=== PATIENT | female | born 2000 | race Caucasian/White ===

== ENCOUNTER 2022-06-07 06:54 | Day surgery (SDC) | payer MEDICAID, SELFPAY ==
[2022-06-07] VITALS (10 sets, daily range): BP systolic 89–117; BP diastolic 47–77; PULSE 51–73; RESP 15–18; TEMP 36.3–36.9; O2SAT 95–100; BMI 28.5
--- NOTE | 2022-06-07 | POC_PTH ---
PATIENT: [address] LOC: [facility] – [place] U#:[id number] AGE/SX: 22/F ROOM: RE06/07/[address]: Dr. iGna Grimm DO : 2000 BED: DIS: 06/07/2022 SPEC #: [id number] RECD: 06/07/22 13:57 STATUS: TROY SKYE #: [id number] SORAIDA: 06/07/22 00:[address]: Gina Grimm DEPT: SURGICAL PATHOLOGY RECD BY: Sina Strauss Tissues: Product of conception, NOS Procedures: Surgery Specimen Level IV HEADER OPERATION: Suction dilation and curettage PRE-OP DIAGNOSIS: Missed TISSUE SUBMITTED: Products of conception MICROSCOPIC DIAGNOSIS Endometrium, curettage: Chorionic villi, decidualized stroma and trophoblastic cells consistent with products of conception. AM:christiano 06/11/2022 MICROSCOPIC DESCRIPTION Slides are reviewed. GROSS DESCRIPTION Received in fixative is one container labeled with the patient's name and designated products of conception. The specimen consists of multiple fragments of hemorrhagic soft tissue that in aggregate measure 10 x 10 x 3 cm. No tissue is identified. Comb Fixer tissue is submitted in two cassettes. / SJ:christiano 06/10/2022 TC:5 CPT: 52179
[2022-06-07] MEDS: Lactated Ringers 1,000 ML 15 ML IV (07:22)
[2022-06-07] MEDS: Lidocaine 1%/Epi 1:200 (30ml) 30 ML AMPUL (07:49)
[2022-06-07] MEDS: miSOPROStol 200 MCG Tablet (08:08)
--- NOTE | 2022-06-07 08:15 | DCINST_ITS ---
Discharge Instructions Diet Discharge Diet: No restrictions Activity Discharge Activity: May Drive (once you are more than 24 hours out from surgery) and May Shower (once you are more than 24 hours out from surgery) Return to work on:: 06/10/22 May resume sexual activity in: 1-2 weeks (no intercourse, tampons, soaking in water for 1-2 weeks until the bleeding stops) Weight Bearing Status: Weight bearing as tolerated Lifting Restrictions: none Dressing / Incision Call your doctor if you observe: Fever of 101 or Higher, Coldness, Increased Pain, Numbness or Tingling, Change in Color, Inability to urinate, Inability to have a bowel movement, Using more than 1 pad per hour, Shortness of breath, Dizziness, Fainting spells, Swelling in the ankles, Chest pain, Increased palpitations (irregular heartbeat), Calf discomfort and Uncontrolled pain Follow Up Care Please Follow Up With: Gina Grimm DO When: 1-2 weeks for follow up Test Results: Test results from this visit will be discussed in further detail at your follow- up appointment, if applicable. Discharge Plan Admission Primary Reason for Your Visit: surgery Attending Provider: Gina Grimm Primary Care Provider: LILO ANDINO Discharge Orders/Prescriptions Prescriptions: New ibuprofen 600 mg tablet 600 mg PO Q6H PRN (Reason: pain) Qty: 30 0RF Continued albuterol sulfate 90 mcg/actuation Hfa Aerosol Inhaler 1 inh INHALATION PRN PRN (Reason: Wheezing) beclomethasone dipropionate 40 mcg/actuation Aerosol 40 mcg INHALATION DAILY Referrals / Follow Up: LILO ANDINO [Other] Disposition Disposition (needs filled in before D/C Order can be placed): Home, Self Care
--- NOTE | 2022-06-07 08:18 | PCM.OPRPT ---
Problems Associated Problem List Diagnoses (1) Missed : Report of Operation Date of Procedure: 06/07/22 Pre-Operative Diagnosis: MAB at 11 weeks Post-Operative Diagnosis: MAB at 11 weeks Surgery/Procedure Performed:: Suction D&C under ultrasound guidance Description of Surgical Findings:: Uterus 11 week size Surgeon: Gina Grimm dynamic etching processor: None Type of Anesthesia: MAC Special Medications: None Specimen's removed: Products of conception Drains: None Estimated Blood Loss (mL): 200 Fluids Replaced: 800 cc Description of Procedure: The patient was taken to the operating room where MAC anesthesia was induced and found to be adequate. She was prepped and draped in the dorsal lithotomy position using yellowfin stirrups. The uterus was about 11 weeks in size. A weighted speculum was placed in the vagina to expose the cervix. The anterior lip of the cervix was grasped with a single-tooth tenaculum. The cervix was already minimally dilated. Local was infiltrated circumferentially around the cervix. The cervix was further dilated to accommodate a size 12 suction curettage. Under ultrasound guidance the size 12 suction curettage was used to remove products of conception until no further products of conception were noted. A sharp curettage was used along all 4 uterine grossman noting a good uterine cry. Ultrasound confirmed no further retained products of conception. Bleeding minimal at this time. Cytotec 800 mcg was placed rectally. All instruments removed from the vagina. Vaginal sweep was performed. Instrument, sponge and sharp counts were correct. The patient was taken to the recovery in stable condition. Grafts/Implants Used: None Procedure Start Time: 07:49 Procedure Stop Time: 08:12 Complications None Admit VTE Documentation VTE Present on Admission: No VTE Mechan Device Prophylaxis: SCD's
== END 2022-06-07 12:09 | disposition home or self-care (01) ==
LOC: SDC 06:58 → AC 06:59
PROVIDERS: Referring Provider Obstetrics & Gynecology; Visit Provider Obstetrics & Gynecology
PROC: (CPT 59820; principal; 2022-06-07 07:15)
DX: O02.1 Missed abortion (principal); Z86.16 Personal history of COVID-19; Z87.891 Personal history of nicotine dependence
CPT/HCPCS: 59820; 01965; 88305; J7120; J2405